=== PATIENT | male | born 1975 | race Caucasian/White ===

== ENCOUNTER 2017-07-23 21:38 | Emergency (ER) | payer OTHER ==
[~2017-07-23] VITALS: Ht 180.3 cm; Wt 106.8 kg
[2017-07-23 21:46] VITALS: BP 144/89; PULSE 96; RESP 16; O2SAT 99
--- NOTE | 2017-07-23 22:45 | ED.REPORT ---
HPI-General Illness Date of Service Jul 23, 2017 ED Provider: Williams Schaffer MD The pt is a 41 y/o male with no pertinent hx who presents to the ED complaining of lightheadedness for the last few days. The pt also reports left sided occipital pressure like pain that radiates down his back to the left hip. He also reports left testicular pain and generalized weakness. He denies dysuria. He has been experiencing this pain for at least two years and has been seen for these sx at [facility] several times over the last year. There, his X-rays, CT and US are always found normal. The pt reports being unemployed for several years because of his current symptoms. The pt refused an X-ray. Nursing Notes Stated Complaint: NEAR SYNCOPE,RAPID HEART RATE,BACK PAIN Chief Complaint: General Complaint Nursing Notes Reviewed: Yes Allergies: Coded Allergies: prednisone (Verified Adverse Reaction, Severe, BURNING ALL OVER, 07/23/17) General Time Seen by MD: 22:26 Chief Complaint Other (lightheaded) Hx Obtained From: Patient Arrived By: Walk-in Sudden in Onset?: No Onset Occurred: 3 days ago Symptom Duration: Since onset Location: : Head Quality: Painful Radiation: : Back Severity: Current: Moderate Severity: Maximum: Severe Recent Healthcare: Recent doctor visit Similar Sx Previous: Yes Past Medical History Past Medical History Notes: As per [facility] medical records, the pt was seen at the ED in May 2017 for ongoing abdominal and left flank pain for the last 2 years that worsened recently. He also complained of testicular pain. At that time, his labs showed ketones but were otherwise normal. He had a negative scrotal ultrasound and negative urinary tract ultrasound. The ED physician concluded he had functional bowel pain. The pt then followed up with his PCP in June 2017, at which time he continued to report upper abdominal and left flank pain. Past Medical History Reports a gastric ulcer and mild inflammation. Chronic skin ulcer Smoking History Former Smoker Social History Alcohol Use: Denies alcohol use Drug Use: Denies drug use Other Social History: Good social support, Ambulatory Status Independent Review of Systems Full Review of Systems Constitutional: Reports: Weakness - generalized Male: Reports Testicular pain (left), Denies Dysuria Musculoskeletal: Reports: Back pain, Joint pain (left hip) Neurologic: Reports: Headache, Lightheaded Complete sys rev & neg: except as marked. Physical Exam Vital Signs Vital Signs Date Time Temp Pulse Resp B/P Pulse Ox O2 Delivery O2 Flow Rate FiO2 07/24/17 01:27 36.7 93 22 127/74 100 Room Air 07/23/17 21:46 36.5 96 16 144/89 99 Room Air Initial VS: Reviewed, Vital signs normal Head / Eyes: Atraumatic, Normocephalic Neck: Supple, Non-tender, Full range of motion Respiratory: Breath sounds normal, Clear to auscultation, No respiratory distress Cardiovascular: Regular rate & rhythm, Heart sounds normal, Intact distal pulses Abdomen / GI: Soft, Non-tender, No guarding, No rebound, No distention Extremities: Vascular intact, Neuro intact, No swelling, No tenderness Skin: Warm, Dry, No cyanosis Neurologic: Alert, Oriented, Nonfocal General/Constitutional: Awake, Alert Distress / Hydration: Positive: Distress mild Behavior: Positive: Anxious Interpretation & Diagnostics CT abd and pelvis and chest Conclusion: Minimal fat stranding in the lower back bilaterally at the lumbosacral junction level, possibly dependent edema. Consider acute infection, in the appropriate clinical setting. Signed by Dr. Rasheeda Kemp 07/24/17 01:29 Lab Results Interpretation Result Diagram: 07/23/17 2313 07/23/17 2313 Test 07/23/17 22:08 07/23/17 23:13 07/23/17 23:30 Hold Urine Received (Received) White Blood Count 9.5th/mm3 (3.8-10.1) Red Blood Count 5.68mil/mm3 (4.40-5.80) Hemoglobin 17.7g/dL (13.8-17.2) Hematocrit 49.2% (41.0-50.0) Mean Corpuscular Volume 86.6fL (81-100) Mean Corpuscular Hemoglobin 31.2pg (27.0-35.0) Mean Corpuscular Hemoglobin Concent 36.0% (32.0-37.0) Red Cell Distribution Width 12.4% (12.3-15.4) Platelet Count 211bil/L (150-400) Neutrophils (%) (Auto) 75.5% (40-74) Lymphocytes (%) (Auto) 14.5% (14-46) Monocytes (%) (Auto) 9.4% (4-12) Eosinophils (%) (Auto) 0.2% (0-5) Basophils (%) (Auto) 0.2% (0-3) Sodium Level 138mEq/L (134-144) Potassium Level 4.1mEq/L (3.5-5.2) Chloride Level 98mEq/L (97-108) Carbon Dioxide Level 20mmol/L (18-29) Blood Urea Nitrogen 12mg/dL (6-24) Creatinine 0.83mg/dL (0.76-1.27) Estimat Glomerular Filtration Rate 107mL/min (>59) Glucose Level 95mg/dL (60-99) Calcium Level 10.1mg/dL (8.5-10.1) Magnesium Level 2.3mg/dL (1.6-2.6) Total Bilirubin 1.0mg/dL (0.0-1.2) Aspartate Amino Transf (AST/SGOT) 16U/L (0-50) Alanine Aminotransferase (ALT/SGPT) 25U/L (0-44) Alkaline Phosphatase 81U/L (25-150) Total Protein 8.2g/dL (6.4-8.4) Albumin 5.2g/dL (3.4-5.0) Lipase 33U/L (13-60) Urine Color Dark yellow (YELLOW) Urine Appearance Clear (CLEAR,HAZY) Urine pH 6.0 (5.0-8.0) Urine Specific Marshall 1.020 (1.003-1.035) Urine Protein Negativemg/dL (NEG,TRACE) Urine Glucose (UA) Negativemg/dL (NEGATIVE) Urine Ketones >80mg/dL (NEGATIVE) Urine Occult Blood Negative (NEGATIVE) Urine Nitrite Negative (NEGATIVE) Urine Bilirubin Negative (NEGATIVE) Urine Urobilinogen 1.0mg/dL (NORMAL) Urine Leukocyte Esterase Negative (NEGATIVE) Urine RBC 0-2/hpf (0-2) Urine WBC 0-5/hpf (0-5) Urine Epithelial Cells Occasional/hpf (NONE-MOD) Urine Crystals None seen (NONE SEEN) Urine Bacteria Few/hpf (NONE-FEW) Urine Hyaline Casts Occasional/lpf (NONE) Urine Granular Casts None seen (NONE SEEN) Urine Waxy Casts None seen (NONE SEEN) Urine Red Blood Cell Casts None seen (NONE SEEN) Urine White Blood Cell Casts None seen (NONE SEEN) Urine Mucus None seen (None Seen) Urine Trichomonas None seen (NONE SEEN) Urine Yeast None (NONE SEEN) Urinalysis Comment None Urine Culture Reflexed Not indicated Lab values outside NL range: no clinical significance. ECG Interpretation ECG Interpretation: Normal sinus rhythm. Rate 88. Time: 22:53 Interpreted by: ED physician CT Head Interpretation No acute intracranial abnormality. Signed by Dr. Rasheeda Kemp 07/24/17 01:25 Study: Head CT no contrast Interpretation / Wet Read by: Interpret - Radiologist Re-Eval/Medical Decision Med Decision/Clinical Course 41-year-old male who has been receiving most of his care at [facility] in [place]. He has had multiple visits there because of vague back and abdominal pain. His workup has included a CT KUB, plain film x-rays and laboratory tests. He is frustrated with his lack of specific diagnosis. I reviewed his last 2 ER visits there and fairly extensive workup has been done. Because of his new mental status and headache complaints a CT scan was done here which was negative. We also did a chest abdomen pelvis CT scan with contrast which showed no significant abnormalities. He is being discharged home. We discussed what he should expect for further workup. I see no evidence at this time of any serious cause of his discomfort. I feel that anxiety, depression and deconditioning all probably play a significant role in this. Source of Hx: Old records Time of Eval: 23:41 Re-Evaluation/Progress Note: Rechecked pt. Discussed the plan to do a CT head and chest. He understands and would like some time to make a decision. Time of Eval: 00:02 Re-Evaluation/Progress Note: Rechecked pt. He agrees to both the CT scans. Time of Eval: 01:41 Re-Evaluation/Progress Note: Rechecked pt. Discussed lab results, imaging results, diagnosis and plan to discharge. Pt understands and agrees with the plan. F/U instruction and RTER warning given. All questions addressed. Counseled Regarding: Diagnosis, Lab results, Need for follow-up, When/why to return to ED Discharge & Departure Primary Impression: Back pain Back pain location: back pain in unspecified location Chronicity: chronic Back pain laterality: left Qualified Code: M54.9 - Dorsalgia, unspecified Disposition: Home Discharge Condition All VS Reviewed: Yes Condition: Stable Patient Instructions: Back Pain (ED) Additional Instructions: The cause of your back pain is not identified on any of the labs and CT imaging that we did. No serious or dangerous cause of pain is identified. I recommend that you follow-up with your regular doctor to check on the results of previous labs done at the [facility] ER and to discuss a spinal MRI as a next possible step. It also does not appear that any rheumatology type labs have been done from the records I was able to obtain. Discussed this with your primary doctor. Referrals: OTHER,PHYSICIAN (PCP) Scribe Attestation Portions of this note were transcribed by Kandice Delaney. I,, personally performed the history,physical exam and medical decision-making;I reviewed and confirmed the accuracy of the information in the transcribed note. Signed by Mica Sibley. 07/23/17 Williams Schaffer MD Jul 23, 2017 22:45 Kandice Delaney Jul 23, 2017 22:51
[2017-07-23 23:15] LABS: BASOPHILS % (AUTO) 0.2 % (0-3); EOSINOPHILS % (AUTO) 0.2 % (0-5); MONOCYTES % (AUTO) 9.4 % (4-12); Mean Corpuscular Hemoglobin 31.2 pg (27.0-35.0); Mean Corpuscular Volume 86.6 fL (81-100); NEUTROPHILS % (AUTO) 75.5 % (40-74); Platelet Count 211 bil/L (150-400)
[2017-07-23 23:36] LABS: Magnesium 2.3 mg/dL (1.6-2.6)
[2017-07-24 00:09] LABS: APPEARANCE,URINE CLEAR (CLEAR,HAZY); COLOR,URINE DARK YELLOW (YELLOW); OCCULT BLOOD,URINE NEGATIVE (NEGATIVE)
[2017-07-24 01:27] VITALS: BP 127/74; PULSE 93; RESP 22; O2SAT 100
--- NOTE | 2017-07-24 07:29 | DRSVH ---
PROCEDURE: CT BRAIN WITHOUT CONTRAST ([id number]) INDICATIONS: altered mental status TECHNIQUE: Noncontrast 4.5 mm thick angled axial sections acquired from the foramen magnum to the vertex, with c oronal reformats. COMPARISON: None. FINDINGS: Image quality: Excellent. CSF spaces: Basal cisterns are patent. No extra-axial fluid collections. Ventricles are normal in size and shape. Brain: No midline shift. No intracranial masses or hemorrhage. Carr-white matter interface is norm al. Skull and face: Calvarium and visualized facial bones are intact, without suspicious lesions. Sinuses: Visualized sinuses and mastoids are clear. IMPRESSION: 1. No CT evidence of acute intracranial pathology. 2. There are no discrepancies with the preliminary report. Dictated by: Miguel Angel Stokes M.D. on 07/24/2017 at 7:25 Approved by: Miguel Angel Stokes M.D. on 07/24/2017 at 7:27
--- NOTE | 2017-07-24 07:41 | DRSVH ---
PROCEDURE: CT CHEST, ABDOMEN AND PELVIS WITH CONTRAST ([id number]) INDICATIONS: left paraspinous pain TECHNIQUE: After the administration of intravenous contrast, 5 mm thick sections acquired from the lung apices t o the symphysis. 5 mm thick coronal and sagittal reformats were acquired. Additional 7 mm thick cor onal maximum intensity projection (MIP) reformats acquired through the lungs. Optional 10-minute del ayed imaging may be performed from the kidneys to the bladder. For radiation dose reduction, the fol lowing was used: automated exposure control, adjustment of mA and/or kV according to patient size. COMPARISON: None. FINDINGS: Image quality: Excellent. CHEST: Lungs: No pulmonary contusions or lacerations. No acute airspace opacities. No pneumothorax or hem othorax. Central and peripheral airways appear patent and normal in caliber. There is likely scarri ng measuring 6 x 2 mm along the left major fissure (se 4 im 32) and a 6 x 2 mm right middle lobe area of likely scarring (se 4 im 36). Mediastinum: No mediastinal hematomas. Heart size is normal. No pericardial effusion. Thoracic ao rta and pulmonary arteries demonstrate normal size and enhancement. No mediastinal or hilar adenopat hy. Esophagus is normal in caliber. No hiatal hernia. Chest wall: No rib fractures. No subcutaneous emphysema. No axillary or supraclavicular adenopathy . Thyroid gland is normal worsening. ABDOMEN: Solid organs: Liver and spleen are normal in size and enhancement, without lacerations. Gallbladder is normal by CT. Biliary system is non-dilated. Pancreas enhances normally, without transection. No adrenal hematomas. Both kidneys enhance normally, without hydronephrosis or lacerations. Peritoneum and bowel: No free fluid or air. Unenhanced bowel loops demonstrate normal wall thicknes s and caliber. Nodes and vessels: No retroperitoneal or mesenteric adenopathy. Aorta and inferior vena cava are no rmal in size and enhancement. Miscellaneous: No ventral hernias. PELVIS: Genitourinary: Bladder wall thickness is normal. Miscellaneous: No inguinal hernias or adenopathy. Minimal fat stranding in the left paracentral pos terior subcutaneous tissues at overlying the left sacroiliac joint (se 3 im 22). Bones: Pelvic ring and hip joints appear intact. No vertebral compression fractures. There is an 8 cm of sclerosis in the left ileum (se 3 im 104). IMPRESSION: 1. Minimal fat stranding overlying the left sacroiliac joint posteriorly may represent contusion, inf ection, or edema and may correspond to the patient's area of pain. 2. Tiny 8 mm area of sclerosis the left ilium is likely benign given the patient's young age. If this area corresponds to the patient's symptoms this finding can be further evaluated with a pelvic MRI w ith and without contrast. 3. 2 tiny areas of scarring along the left major fissure and in the right middle lobe. If this patien t is low risk no further radiographic followup is needed. If patient is high risk recommend followup chest CT in 12 months. 4. There are no urgent discrepancies with the preliminary report. Dictated by: Miguel Angel Stokes M.D. on 07/24/2017 at 7:27 Approved by: Miguel Angel Stokes M.D. on 07/24/2017 at 7:39
== END 2017-07-24 02:37 | disposition home or self-care (01) ==
LOC: SED 21:38
DX: M54.9 Dorsalgia, unspecified (principal); G89.29 Other chronic pain; N50.812 Left testicular pain; R53.1 Weakness; Z87.891 Personal history of nicotine dependence; Z88.8 Allergy status to other drugs, medicaments and biological substances
CPT/HCPCS: 36415; 70450; 71260; 74177; 80053; 81000; 83690; 83735; 85025; 93005; 99285; Q9967